=== PATIENT | male | born 1995 | race Two or more races ===

== ENCOUNTER 2024-07-01 19:19 | Emergency (ER) | payer OTHER ==
[~2024-07-01] VITALS: Ht 180.3 cm; Wt 81.8 kg
[2024-07-01 19:25] VITALS: TEMP 98.1
[2024-07-01 20:57] VITALS: BP 143/73; PULSE 89; RESP 18; O2SAT 97
[2024-07-01] MEDS ORDERED: IBUP-1492 PO (21:10)
[2024-07-01] MEDS ORDERED: METH-812 PO (21:10)
== END 2024-07-01 21:35 | disposition home or self-care (01) ==
LOC: EMS 19:19
DX: M54.50 Low back pain, unspecified (principal); F12.90 Cannabis use, unspecified, uncomplicated; V43.52XA Car driver injured in collision with other type car in traffic accident, initial encounter; Y93.89 Activity, other specified; Y92.410 Unspecified street and highway as the place of occurrence of the external cause; Y99.8 Other external cause status
CPT/HCPCS: 99283; Z7502

== ENCOUNTER 2025-03-28 20:12 | Emergency (ER) | payer MEDICAID, OTHER ==
[~2025-03-28] VITALS: Ht 180.3 cm; Wt 90.0 kg
[~2025-03-28 20:12] MED LIST: IBUP-1492 PO; METH-812 PO
[2025-03-29 00:17] VITALS: BP 103/68; PULSE 55; RESP 14; TEMP 97.7; O2SAT 98
== END 2025-03-28 23:32 | disposition home or self-care (01) ==
LOC: EMS 20:12
DX: T78.40XA Allergy, unspecified, initial encounter (principal); M54.2 Cervicalgia; F12.90 Cannabis use, unspecified, uncomplicated; F32.A Depression, unspecified; Z79.899 Other long term (current) drug therapy; Y92.89 Other specified places as the place of occurrence of the external cause
CPT/HCPCS: 99285; J8540; 99283